=== PATIENT | female | born 1995 | race Caucasian/White ===

== ENCOUNTER 2017-11-05 22:21 | Emergency (ER) | payer OTHER ==
[2017-11-05 22:29] VITALS: RESP 16
--- NOTE | 2017-11-05 23:43 | EDPHY ---
H & P Time Seen by Provider: 11/05/17 22:35 HPI/ROS: Chief complaint: Right leg discomfort History of present illness: This is an otherwise healthy 22-year-old female who presents to the emergency department for right leg discomfort. She reports the onset of symptoms over the last few days. Pain is in the back of her leg around the calf and behind the knee. It is persistent. She denies precipitating factors such as trauma. She denies alleviating or aggravating factors. She denies other associated signs or symptoms including no abnormal coolness or paresthesias in the leg. No fevers. She is ambulating well. Smoking Status: Current every day smoker Physical Exam: General: Alert, nontoxic Skin: No abnormal lesions to the right lower extremity Musculoskeletal: Full range of motion and strength all temple all joints of the right lower extremity. She is ambulating well. Vascular: DP and PT pulses 2+. Neurologic: Sensation intact in the right leg. Constitutional: Initial Vital Signs Temperature (C) 37.3 C 11/05/17 22:24 Heart Rate 86 11/05/17 22:24 Respiratory Rate 16 11/05/17 22:24 Blood Pressure 139/94 H 11/05/17 22:24 O2 Sat (%) 97 11/05/17 22:24 O2 Delivery Mode Room Air Allergies/Adverse Reactions: No Known Allergies Allergy (Verified 11/05/17 22:27) Home Medications: Medication Instructions Recorded NK [No Known Home Meds] 11/05/17 MDM/Departure - MDM Imaging Results: Imaging Impressions Extremity Venous Study 11/05/17 22:52 Impression: No evidence of deep vein thrombosis in the right lower extremity. Results discussed with Wolf Moran at 23:41 PM Imaging: Discussed imaging studies w/ call manager Radiologist ED Course/Re-evaluation: Patient seen under the supervision of my secondary supervising physician Dr. Bin Youngblood. Patient presents for right leg soreness. The leg is neurovascularly intact. She has good musculoskeletal control. She has a benign physical exam. Ultrasound is negative for DVT. I suspect musculoskeletal pain. She will be discharged home. She is asked to follow up with her primary care doctor for recheck. Home care is discussed. Return precautions are given. Differential Diagnosis: Included but not limited to superficial thrombophlebitis, DVT, Antunez cyst, arterial occlusion, sprain or strain, cellulitis - Depart Disposition: Home, Routine, Self-Care Clinical Impression: Right leg pain Condition: Good Instructions: Leg Pain (ED) Additional Instructions: Follow-up with your primary care doctor for continued evaluation and care If symptoms worsen or new symptoms develop return to the emergency room for recheck Referrals: CLARIBEL PERRY D.O. [Other] - As per Instructions
[2017-11-06 00:04] VITALS: BP 129/72; PULSE 77; TEMP 98.1; O2SAT 96
== END 2017-11-06 00:04 | disposition home or self-care (01) ==
DX: M79.604 Pain in right leg (principal); F17.200 Nicotine dependence, unspecified, uncomplicated